=== PATIENT | female | born 1995 | race Two or more races ===

== ENCOUNTER 2024-12-30 19:37 | Emergency (ER) | payer MEDICAID, OTHER ==
[~2024-12-30] VITALS: Ht 154.9 cm; Wt 85.2 kg
[2024-12-30 19:37] VITALS: BP 113/82; PULSE 77; RESP 18; TEMP 98.6; O2SAT 98
[2024-12-30 21:16] LABS: Urine Protein, UAD Negative (Negative)
== END 2024-12-30 23:22 | disposition left against medical advice (07) ==
LOC: ER 19:37
DX: G43.909 Migraine, unspecified, not intractable, without status migrainosus (principal); Z53.21 Procedure and treatment not carried out due to patient leaving prior to being seen by health care provider
CPT/HCPCS: 81001; 81025